=== PATIENT | male | born 1980 | race Caucasian/White ===

== ENCOUNTER 2017-03-11 12:12 | Emergency (ER) | payer OTHER ==
[~2017-03-11] VITALS: Ht 193 cm; Wt 90.7 kg
[2017-03-11 13:27] VITALS: BP 122/88
== END 2017-03-11 13:32 | disposition home or self-care (01) ==
LOC: ER 12:12
DX: S01.511A Laceration without foreign body of lip, initial encounter (principal); S80.01XA Contusion of right knee, initial encounter; V89.2XXA Person injured in unspecified motor-vehicle accident, traffic, initial encounter; Y93.89 Activity, other specified; Y92.89 Other specified places as the place of occurrence of the external cause; Y99.8 Other external cause status